=== PATIENT | male | born 1995 | race Caucasian/White ===

== ENCOUNTER 2016-09-24 16:53 | Inpatient (IN) | payer MEDICAID, OTHER ==
[~2016-09-24] VITALS: Ht 175.3 cm; Wt 52.7 kg
[2016-09-24] MEDS ORDERED: LORAZEPAM 2 MG INJ IV STA (17:47)
[2016-09-24] MEDS ORDERED: SOD CHLORIDE 0.9% 1,000 ML IV STA (17:47)
[2016-09-24] MEDS ORDERED: LORAZEPAM 2 MG INJ IV ONE (18:00)
[2016-09-24 18:15] LABS: ADD SCAN DIFF NO
[2016-09-24 18:19] LABS: BASOPHIL # 0.1 10^3/ul (0.0-0.1); BASOPHILS % 0.5 % (0.0-2.0); EOSINOPHILS # 0.2 10^3/ul (0.0-0.5); EOSINOPHILS % 2.2 % (0.0-7.0); HEMATOCRIT 47.1 % (42.0-52.0); HEMOGLOBIN 15.3 g/dl (14.0-18.0); LYMPHOCYTES % 40.7 % (15.0-51.0); MEAN CORPUSCULAR HEMOGLOBIN 31.5 pg (29.0-33.0); MEAN CORPUSCULAR HGB CONC 32.5 g/dl (32.0-37.0); MEAN CORPUSCULAR VOLUME 96.9 fl (82.0-101.0); MEAN PLATELET VOLUME 9.8 fl (7.4-10.4); MONOCYTE # 0.8 10^3/ul (0.3-0.9); MONOCYTES % 8.5 % (0.0-11.0); NEUTROPHIL # 4.5 10^3/ul (1.6-7.5); NEUTROPHILS % 45.7 % (39.0-77.0); PLATELET COUNT 253 10^3/UL (140-415); RED BLOOD COUNT 4.86 10^6/ul (4.70-6.10); RED CELL DISTRIBUTION WIDTH 12.1 % (11.5-14.5); WHITE BLOOD COUNT 9.7 10^3/ul (4.8-10.8)
[2016-09-24] MEDS ORDERED: LEVETIRACETAM 1000 MG (PMX) 100 ML IVPB ONE (18:30)
[2016-09-24 18:41] LABS: ALBUMIN 5.3 g/dl (3.3-4.9); ALBUMIN/GLOBULIN RATIO 1.65; BILIRUBIN,INDIRECT 0.4 mg/dl (0-1.1); BILIRUBIN,TOTAL 0.4 mg/dl (0.2-1.3); CALCIUM 9.3 mg/dl (8.4-10.2); CREATININE 0.54 mg/dl (0.61-1.24); POTASSIUM 4.3 mmol/L (3.5-5.1); TOTAL PROTEIN 8.5 g/dl (6.1-8.1)
[2016-09-24 19:46] LABS: ADD UMIC YES; URINE BILIRUBIN (Dip) NEGATIVE (NEGATIVE); URINE BLOOD (Dip) 3+ (NEGATIVE); URINE GLUCOSE (Dip) NEGATIVE (NEGATIVE); URINE KETONES (Dip) NEGATIVE (NEGATIVE); URINE LEUKOCYTE ESTERASE (Dip) 1+ (NEGATIVE); URINE NITRITE (Dip) NEGATIVE (NEGATIVE); URINE TOTAL PROTEIN (Dip) 1+ (NEGATIVE); URINE UROBILINOGEN (Dip) 0.2 E.U./dL (0.1-1.0)
[2016-09-24 19:48] LABS: URINE COLOR RED (YELLOW)
--- NOTE | 2016-09-24 20:06 | RADRPT ---
PROCEDURE: CT Head without. CLINICAL INDICATION: Seizure, craniotomy flap. TECHNIQUE: The study was performed utilizing a multi-slice, multidetector CT scanner. Direct spira l 1 mm axial sections were obtained through the head without the use of intravenous contrast materia l. 1 or more of the following dose reduction techniques were utilized: Automated exposure control, adjustment of the mA and/or kV according to patient's size, iterative reconstruction technique. Co halina and sagittal reformations were obtained. The images were reviewed on a PACS workstation. RADIATION DOSE: CTDIvol: 41.3 mGyDLP: 677.2 mGy-cm COMPARISON: 03/27/2011 FINDINGS: There is no intracranial hemorrhage, mass lesion, midline shift or hydrocephalus. There is subtle h ypodensity involving the posterior right temporal/parietal lobe, which is nonspecific. There are po stoperative changes from prior right frontal - temporal - parietal craniectomy. There is encephalom alacia involving the right anterior temporal lobe, incompletely evaluated. There is a mild amount o f encephalomalacia in the periventricular white matter of the right cerebral hemisphere is there is moderate prominence of the frontal horns, bodies and occipital horns of the lateral ventricles. The temporal horns are normal in size. There is no evidence hydrocephalous. The basal cisterns are pa tent. The midline structures are intact. The orbits, calvarium and extracranial soft tissues are n ormal in appearance. The visualized paranasal sinuses, mastoid air cells and middle ear cavities are normally aerated. IMPRESSION: 1. Subtle hypodensity involving the right posterior temporal and parietal lobes, which may be relat ed to sequelae of prior trauma versus infarct. If clinical concern for infarct versus encephalitis, MRI of the brain with without contrast of the helpful for further evaluation. 2. Right frontal / parietal / temporal craniectomy. 3. Encephalomalacia involving the right anterior temporal lobe, likely related to encephalomalacia from prior trauma. 4. Multiple areas of subtle hypodensity involving the right centrum semiovale white matter, which m ay be related to infarct versus gliosis. 5. No intracranial hemorrhage, extra-axial fluid collection, mass lesion or hydrocephalous. RPTAT: HGAS .Zhao Mcwilliams MD, MD Date Time Electronically viewed and signed by .Zhao Mcwilliams MD, on 09/24/2016 20:05 .S/
[2016-09-24 20:10] LABS: BACTERIA,URINE FEW; URINE RBCS >200 /HPF (0)
--- NOTE | 2016-09-24 20:29 | RADRPT ---
PROCEDURE: CT abdomen and pelvis without intravenous contrast. CLINICAL INDICATION: Pain. TECHNIQUE: CT of the abdomen/pelvis was performed utilizing axial images with reconstructions in s agittal and coronal planes. The administered radiation dose is CTDI 17 mGy, DLP 945 mGy-cm. COMPARISON: No pertinent prior examinations were submitted for comparison. FINDINGS: Visualized Chest: The visualized lung bases are clear. Abdomen: The liver, spleen, pancreas, gallbladder,and adrenal glands are unremarkable. There is mild right hydronephrosis secondary to a 5 mm calculus in the proximal right ureter. The l eft kidney is without hydronephrosis. There is no evidence of bowel obstruction. The appendix is normal. No intra-abdominal free air is seen. There is no evidence of intra-abdominal adenopathy or free fluid. Pelvis: Numerous layering calculi are noted within the bladder. Some metallic foreign bodies are noted with in the pelvis bilaterally, likely embolization coils. Osseous structures: Chronic, healed pelvic fractures are noted. An intramedullary hallie is noted in t he proximal left femur. IMPRESSION: Right-sided obstructive uropathy secondary to a 5 mm calculus in the proximal right ureter. Numerous bladder calculi. RPTAT: HIKT .Ricardo Masterson MD, MD Date Time Electronically viewed and signed by .Ricardo Masterson MD, MD on 09/24/2016 20:28 .T/
[2016-09-24] MEDS ORDERED: CEFEPIME 1GM/50 ML (PMX) 50 ML IVPB ONE (20:30)
[2016-09-24] MEDS ORDERED: ACETAMINOPHEN 325 MG TAB PO PRN (21:30)
[2016-09-24] MEDS ORDERED: ONDANSETRON 4 MG INJ IV PRN (21:30)
[2016-09-24] MEDS ORDERED: ENOX100D2 SC (23:20)
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
[2016-09-25] MEDS ORDERED: SOD CHLORIDE 0.9% 1,000 ML IV ONE
[2016-09-25] MEDS ORDERED: PROP40TA54 PO (00:01)
[2016-09-25 00:45] VITALS: TEMP 98.2
[2016-09-25] MEDS ORDERED: propanolol PO (01:51)
[2016-09-25] MEDS ORDERED: DEXT1DRO7 OP (01:51)
[2016-09-25] MEDS ORDERED: LEVE250T66 PO (01:51)
[2016-09-25] MEDS ORDERED: ENOX100D2 SC (01:51)
[2016-09-25 02:30] VITALS: BP 117/68; PULSE 93; RESP 18
[2016-09-25] MEDS ORDERED: ACETAMINOPHEN 325 MG TAB PO PRN (02:30)
[2016-09-25] MEDS ORDERED: ONDANSETRON 4 MG INJ IV PRN (02:30)
[2016-09-25] MEDS ORDERED: morphine 2 MG INJ IV PRN (02:30)
[2016-09-25 02:50] VITALS: Ht 175.3 cm; Wt 52.7 kg
[2016-09-25] MEDS: TAMSULOSIN (SR) 0.4 MG CAP PO SCH ×2 (03:21→21:41)
[2016-09-25] MEDS: SOD CHLORIDE 0.9% 1,000 ML IV SCH ×4 (03:21→15:50)
[2016-09-25] MEDS ORDERED: LORAZEPAM 2 MG INJ IV PRN (05:30)
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
[2016-09-25 08:09] VITALS: BP 100/56; RESP 22
[2016-09-25] MEDS ORDERED: PROPRANOLOL 40 MG TAB PO SCH (09:00)
[2016-09-25] MEDS: PROPRANOLOL 20 MG TAB PO SCH ×2 (09:43→21:41)
[2016-09-25] MEDS: LEVETIRACETAM 250 MG TAB PO SCH ×2 (09:44→21:41)
[2016-09-25] MEDS: CEFTRIAXONE 1 GM/50 ML (PMX) 50 ML IVPB SCH (09:45)
[2016-09-25] MEDS: ARTIFICIAL TEARS 15 ML OPH BOTH EYES SCH ×3 (09:51→21:41)
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
[2016-09-25 19:23] VITALS: BP 105/62; RESP 18
[2016-09-26] MEDS: SOD CHLORIDE 0.9% 1,000 ML IV SCH ×6 (01:32→22:59)
[2016-09-26 07:45] LABS: ADD SCAN DIFF NO
[2016-09-26 07:48] LABS: BASOPHILS % 0.7 % (0.0-2.0); EOSINOPHILS % 2.5 % (0.0-7.0); HEMATOCRIT 38.2 % (42.0-52.0); HEMOGLOBIN 12.9 g/dl (14.0-18.0); LYMPHOCYTES # 1.6 10^3/ul (0.8-2.9); LYMPHOCYTES % 37.4 % (15.0-51.0); MEAN CORPUSCULAR HEMOGLOBIN 31.9 pg (29.0-33.0); MEAN CORPUSCULAR HGB CONC 33.8 g/dl (32.0-37.0); MEAN CORPUSCULAR VOLUME 94.3 fl (82.0-101.0); MEAN PLATELET VOLUME 9.7 fl (7.4-10.4); MONOCYTES % 8.7 % (0.0-11.0); NEUTROPHIL # 2.2 10^3/ul (1.6-7.5); NEUTROPHILS % 50.7 % (39.0-77.0); PLATELET COUNT 180 10^3/UL (140-415); RED BLOOD COUNT 4.05 10^6/ul (4.70-6.10); RED CELL DISTRIBUTION WIDTH 12.2 % (11.5-14.5); WHITE BLOOD COUNT 4.4 10^3/ul (4.8-10.8)
[2016-09-26 07:49] LABS: EOSINOPHILS # 0.1 10^3/ul (0.0-0.5); MONOCYTE # 0.4 10^3/ul (0.3-0.9)
[2016-09-26 08:02] VITALS: BP 106/59; RESP 18
[2016-09-26 08:07] LABS: INR 1.16; PROTIME 14.9 Sec (12.2-14.2); PT RATIO 1.2
[2016-09-26 08:16] LABS: ALBUMIN 4.3 g/dl (3.3-4.9); ALBUMIN/GLOBULIN RATIO 1.65; BILIRUBIN,INDIRECT 0.5 mg/dl (0-1.1); BILIRUBIN,TOTAL 0.5 mg/dl (0.2-1.3); CALCIUM 9.6 mg/dl (8.4-10.2); CREATININE 0.42 mg/dl (0.61-1.24); MAGNESIUM 1.9 mg/dl (1.7-2.5); PHOSPHORUS 3.9 mg/dl (2.5-4.9); POTASSIUM 3.6 mmol/L (3.5-5.1); TOTAL PROTEIN 6.9 g/dl (6.1-8.1)
[2016-09-26] MEDS: ARTIFICIAL TEARS 15 ML OPH BOTH EYES SCH ×3 (09:21→21:06)
[2016-09-26] MEDS: PROPRANOLOL 20 MG TAB PO SCH ×2 (09:21→21:00)
[2016-09-26] MEDS: LEVETIRACETAM 250 MG TAB PO SCH (09:21)
[2016-09-26] MEDS: CEFTRIAXONE 1 GM/50 ML (PMX) 50 ML IVPB SCH (09:23)
--- NOTE | 2016-09-26 10:18 | RADRPT ---
PROCEDURE: XR Abdomen. CLINICAL INDICATION: eval for kidney stone TECHNIQUE: AP abdomen x-ray. COMPARISON: None. FINDINGS: There is a nonobstructive bowel gas pattern. There are no abnormal calcifications overlying the urinary tracts. Osseous and soft tissue structures are unremarkable. Coil masses are noted projecting over the left sacrum and right lauryn pelvis. IMPRESSION: No radiopaque renal/ureteral calculi. Coil masses noted projecting over the pelvis. RPTAT: EE Physician Luis Armando Date Time Electronically viewed and signed by Physician Luis Armando on 09/26/2016 10:17 RA/
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
[2016-09-26 20:00] VITALS: BP 116/62; RESP 16
[2016-09-26] MEDS: TAMSULOSIN (SR) 0.4 MG CAP PO SCH (21:07)
[2016-09-26] MEDS: LEVETIRACETAM 500 MG TAB PO SCH (21:07)
[2016-09-27 07:53] LABS: CALCIUM 9.5 mg/dl (8.4-10.2); CREATININE 0.45 mg/dl (0.61-1.24); MAGNESIUM 1.8 mg/dl (1.7-2.5); PHOSPHORUS 4.6 mg/dl (2.5-4.9); POTASSIUM 3.5 mmol/L (3.5-5.1)
[2016-09-27 08:47] VITALS: BP 101/54; RESP 18
[2016-09-27] MEDS: SOD CHLORIDE 0.9% 1,000 ML IV SCH (08:49)
[2016-09-27] MEDS: CEFTRIAXONE 1 GM/50 ML (PMX) 50 ML IVPB SCH (08:49)
[2016-09-27] MEDS: ARTIFICIAL TEARS 15 ML OPH BOTH EYES SCH ×2 (08:53→14:34)
[2016-09-27] MEDS: LEVETIRACETAM 500 MG TAB PO SCH (08:53)
[2016-09-27] MEDS: PROPRANOLOL 20 MG TAB PO SCH (08:55)
--- NOTE | 2016-09-27 14:20 | PDOCDIS ---
Discharge Instructions DIAGNOSIS Discharge Diagnosis: seizure; nephrolithiasis CONDITION Patient Condition: Good HOME CARE INSTRUCTIONS: Special Diet: REGULARYour diet recommendation is: less red meats/ avoid extreme high protein foods on a regular basis. ACTIVITY: Activity Restrictions: Slowly Increase Activity FOLLOW UP/APPOINTMENTS Appointments appt pcp 1wk Dr Rosita Cruz -Neurosurgery 1-2wks; Bring CD (on chart). Regular neurologist -1-2wks JAMA GOODRICH MD Sep 27, 2016 14:20
[2016-09-27] MEDS ORDERED: TAMS-14 PO (14:22)
[2016-09-27] MEDS ORDERED: LEVE-5 PO (14:22)
[2016-09-27] MEDS ORDERED: ACET325T40 PO (14:22)
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
== END 2016-09-27 18:20 | disposition home or self-care (01) | DRG 101 ==
LOC: FTE 16:53 → MS2 21:27
PROVIDERS: ADMIT Internal Medicine; ATTEND Internal Medicine
DX: G40.909 Epilepsy, unspecified, not intractable, without status epilepticus (principal); E87.2 Acidosis; Z89.612 Acquired absence of left leg above knee; N20.1 Calculus of ureter; I10 Essential (primary) hypertension; J45.909 Unspecified asthma, uncomplicated; N13.9 Obstructive and reflux uropathy, unspecified; R74.8 Abnormal levels of other serum enzymes; Z89.211 Acquired absence of right upper limb below elbow; M95.2 Other acquired deformity of head
CPT/HCPCS: 36415; 70450; 70551; 74000; 74176; 80048; 80053; 81001; 82306; 83036; 83735; 84100; 84443; 85025; 85610; 87086; 96374; 96375; 97163; J0692; J0696; J1953; J2060; J7030

== ENCOUNTER 2017-05-20 12:40 | Emergency (ER) | END 2017-05-20 19:07 | disposition home or self-care (01) ==

== ENCOUNTER 2017-06-05 20:06 | Emergency (ER) | END 2017-06-06 01:12 | disposition home or self-care (01) ==

== ENCOUNTER 2017-12-03 22:02 | Emergency (ER) | END 2017-12-04 02:27 | disposition home or self-care (01) ==